=== PATIENT | female | born 1985 | race Caucasian/White ===

== ENCOUNTER 2016-05-15 10:43 | Emergency (ER) | payer OTHER | END 2016-05-15 11:38 | disposition home or self-care (01) | LOC: ER 10:43 | DX: O26.892 Other specified pregnancy related conditions, second trimester (principal); O24.112 Pre-existing type 2 diabetes mellitus, in pregnancy, second trimester; R04.0 Epistaxis; Z3A.18 18 weeks gestation of pregnancy; Z79.4 Long term (current) use of insulin | CPT/HCPCS: 99070; 99283 ==